=== PATIENT | male | born 1940 | race Caucasian/White ===

== ENCOUNTER 2019-04-07 06:37 | Emergency (ER) | payer BC, MEDICARE ==
[~2019-04-07] VITALS: Ht 188 cm; Wt 101.0 kg
[~2019-04-07 06:37] MED LIST: AMLO-145 PO; LOSA100T3 PO; ZOLP10TA5 PO
[2019-04-07 06:39] VITALS: Ht 188 cm; Wt 101.0 kg
--- NOTE | 2019-04-07 07:20 | ERD ---
ER Documentation Chief Complaint Chief Complaint pt is bib with c/o right hand swelling s/o fall, multiple falls HPI This is a 78-year-old gentleman who was on anticoagulant for atrial fibrillation who presents to the emergency room for evaluation after mechanical fall. The patient was traveling in [facility] and just returned to the [place] yesterday evening. Patient states that he had 2 mechanical falls on his trip. The patient is describing right hand and wrist pain, left wrist pain and facial trauma. He denies any loss of consciousness. He denies any neck pain. No prodrome of chest pain or shortness of breath. He does have contusions to his bilateral knees but has no significant pain. Pain at this point is 2 out of 10 and throbbing. Patient's main complaint is swelling of his right hand. ROS All systems reviewed and are negative except as per history of present illness. Medications Home Meds Reported Medications Zolpidem Tartrate* (Zolpidem Tartrate*) 10 Mg Tablet, 10 MG PO HS 07/12/12 Losartan Potassium* (Cozaar*) 100 Mg Tablet, 100 MG PO DAILY 07/12/12 Amlodipine Besylate* (Amlodipine Besylate*) 5 Mg Tablet, 5 MG PO DAILY 07/12/12 Allergies Allergies: Coded Allergies: No Known Allergies (Verified Allergy, 06/13/13) Uncoded Allergies: NKA (Allergy, Mild, 07/12/12) PMhx/Soc History of Surgery: Yes (R TKR; left knee replacement) Anesthesia Reaction: No Hx Neurological Disorder: No Hx Respiratory Disorders: No Hx Cardiac Disorders: Yes (HTN) Hx Psychiatric Problems: No Hx Miscellaneous Medical Probl: Yes (PVC's, HTN, kidney stones, colon polyps, Amblyopia Blind R eye) Hx Alcohol Use: Yes (OCC) Hx Substance Use: No Hx Tobacco Use: No Smoking Status: Never smoker FmHx Family History: No diabetes Physical Exam Vitals Vital Signs Date Temp Pulse Resp B/P (MAP) Pulse Ox O2 O2 Flow FiO2 Time Delivery Rate 04/07/19 98.3 65 16 173/111 99 06:39 (131) Physical Exam Airway is intact Bilateral breath sounds Strong distal pulses No obvious deficits General: Well developed, well nourished, no acute distress Head: Small contusion overlying the bridge of the nose Eyes: Pupils equally reactive, EOM intact ENT: Moist mucous membranes, normal jaw opening and closing Neck: Supple, no lymphadenopathy, No midline tenderness, deformities, step-offs to the cervical spine, full active and passive range of motion without midline pain. Respiratory: Lungs clear bilaterally, no distress, no chest wall tenderness, no crepitus Cardiovascular: RRR, no murmurs, rubs, or gallops Abdominal: Soft, non-tender, non-distended, no peritoneal signs, pelvis is stable : Deferred MSK: no midline tenderness deformities or step-offs to the thoracolumbar spine. Right hand has moderate swelling. The patient has a ring on his ring finger that is removed. Patient has good capillary refill. He does have positive snuffbox tenderness on the right wrist. No focal tenderness to the distal radius and ulna. Limited hand grasp secondary to swelling and pain. No focal bony deformities are noted. Left wrist with mild soft tissue tenderness but no snuffbox tenderness. Full active and passive range of motion. No bony abnormalities noted to the bilateral elbows humerus shoulders or clavicles. Contusion to bilateral knee but no focal tenderness. Full range of motion. Neurologic: Alert and oriented, moving all extremities, normal speech, no focal weakness, no cerebellar signs Skin: No ecchymoses or bruising to the chest or abdomen Psych: Normal mood Procedures/MDM EKG, MONITORS, & DIAGNOSTIC IMAGING: CT brain: No acute process per radiologist read CT facial bone: Nasal bone fracture otherwise no acute process per radiologist read X-ray right hand: I reviewed and interpreted multiple views of the x-ray Bones: No evidence of acute fracture dislocation or subluxation Soft tissue: No evidence of foreign body X-ray right wrist: I reviewed and interpreted multiple views of the x-ray Bones: No evidence of acute fracture dislocation or subluxation Soft tissue: No evidence of foreign body X-ray left wrist: I reviewed and interpreted multiple views of the x-ray Bones: No evidence of acute fracture dislocation or subluxation Soft tissue: No evidence of foreign body PROCEDURE: Splint Application Note: Splint type: Ortho-Glass thumb spica Extremity: Right hand Indication: Cannot rule out scaphoid fracture The patient was consented at bedside prior to splint application and states understanding of risks, benefits, and alternatives. The patient was neurovascularly intact prior to and status post application of the splint. The patient tolerated the procedure well and there were no complications. MEDICAL DECISION MAKING: The patient is describing clear mechanical falls without concern for syncope. Patient does take anticoagulant well he did not have loss of consciousness he had facial trauma that warrant CT imaging of the head and facial bone. He does have moderate swelling of his right hand secondary to likely contusion but need to rule out fracture. He does have some snuffbox tenderness to the right wrist and warrants immobilization outpatient hand surgery follow-up for possible occult scaphoid fracture. The patient had a ring that was tight on his right ring finger that was removed successfully without evidence of underlying damage. The patient is otherwise neurovascularly and neurologically intact. ER COURSE: * CT shows nasal bone fracture but no other acute process noted. Patient immobilized given concern for possible occult scaphoid fracture. Outpatient hand surgery follow-up appropriate. * Close head injury precautions were discussed and understood. * At this point the patient is safe for discharge CONSULTATION: None DISPOSITION PLAN: The patient does not have an identifiable emergent medical condition that warrants inpatient hospitalization at this time. The patient is deemed safe for discharge with outpatient follow-up. We discussed follow up with the patient's primary care doctor within 24 to 48 hours as needed. We also discussed return to the emergency room for worsening symptoms or worsening condition. Outpatient referral: Hand surgery Discharge Medications: None required Departure Diagnosis: Primary Impression: Nasal bone fracture Encounter type: initial encounter Fracture type: closed Qualified Codes: S02.2XXA - Fracture of nasal bones, initial encounter for closed fracture Additional Impressions: Knee contusion Encounter type: initial encounter Laterality: unspecified laterality Qualified Codes: S80.00XA - Contusion of unspecified knee, initial encounter Contusion of right hand Encounter type: initial encounter Qualified Codes: S60.221A - Contusion of right hand, initial encounter Closed head injury Encounter type: initial encounter Qualified Codes: S09.90XA - Unspecified injury of head, initial encounter Abrasion of left shoulder Encounter type: initial encounter Qualified Codes: S40.212A - Abrasion of left shoulder, initial encounter Condition: Stable GINETTE ODOM MD Apr 07, 2019 07:20
[2019-04-07 08:25] VITALS: BP 149/89; PULSE 89; RESP 20
== END 2019-04-07 08:26 | disposition home or self-care (01) ==
LOC: E/R 06:37
DX: S02.2XXA Fracture of nasal bones, initial encounter for closed fracture (principal); S60.221A Contusion of right hand, initial encounter; S40.212A Abrasion of left shoulder, initial encounter; S09.90XA Unspecified injury of head, initial encounter; S80.01XA Contusion of right knee, initial encounter; S80.02XA Contusion of left knee, initial encounter; I10 Essential (primary) hypertension; W01.0XXA Fall on same level from slipping, tripping and stumbling without subsequent striking against object, initial encounter; Y92.89 Other specified places as the place of occurrence of the external cause; Z96.652 Presence of left artificial knee joint
CPT/HCPCS: 70450; 70486